=== PATIENT | female | born 1975 | race Caucasian/White ===

== ENCOUNTER → 2016-07-18 | Outpatient (CLI) | payer BC | LOC: RAD 09:00 | DX: M25.561 Pain in right knee (principal) ==

== ENCOUNTER → 2020-03-24 | Outpatient (CLI) | payer BC ==
[2018-08-13 09:27] VITALS: BP 135/86
[~2020-03-24] MED LIST: LISINOPRIL10 MG PO; TRI-SPRINTEC T1 EACH PO
== END ==
LOC: LAB 12:38
DX: J02.9 Acute pharyngitis, unspecified (principal); M79.10 Myalgia, unspecified site; Z20.828 Contact with and (suspected) exposure to other viral communicable diseases

== ENCOUNTER → 2020-05-29 | Outpatient (REF) ==
[2018-08-13 09:27] VITALS: BP 135/86
== END ==
LOC: LAB 08:23
DX: Z00.00 Encounter for general adult medical examination without abnormal findings (principal)